=== PATIENT | male | born 1950 | race Caucasian/White ===

== ENCOUNTER 2025-01-13 09:23 | Day surgery (SDC) | payer MEDICARE ==
[2025-01-13] VITALS (16 sets, daily range): BP systolic 80–135; BP diastolic 50–116
[~2025-01-13] VITALS: Ht 170.2 cm; Wt 70.9 kg
[~2025-01-13 09:23] MED LIST: ALLERGY MEDICAT25 MG PO; ALLO100 PO; Aspirin EC81 MG PO; Cialis5 MG; Flomax0.4 MG PO; GLUCOSAMINE CH1 EAC1 PO; IBUP200 PO; ONE DAILY COMP1 EACH PO; SLEEP AID ULTRA25 MG PO; Simvastatin20 MG PO
--- NOTE | 2025-01-13 10:17 | NUR ---
Patient confirms NPO status and agrees with scheduled surgery. Patient States Post-Procedure ride home has been arranged. Patient states colon prep results clear.
--- NOTE | 2025-01-13 11:01 | NUR ---
01/13/25 1101 Janelle Murillo CONFIRMED AND REVIEWED H&P, MEDCICATIONS, ALLERGIES, MEDICAL HISTORY, RESPIRATORY HISTORY, VITAL SIGNS, 3-LEAD EKG, CONSENTS, AND PHYSICIAN ORDERS. PATIENT CONFIRMS NPO STATUS AND AGREES WITH SCHEDULED PROCEDURE. MONITOR INTACT WITH CONTINUOUS PULSE OXIMETRY, CAPNOGRAPHY, 3-LEAD EKG, INTERMITTENT BP. SUPPLEMENTAL O2 TO BE TITRATED THROUGHOUT PROCEDURE TO MAINTAIN O2 SATURATION ABOVE 90%. PATIENT DETERMINED TO BE ASA APPROPRIATE FOR PROPOFOL SEDATION PRIOR TO START OF PROCEDURE BY DR. READ.
--- NOTE | 2025-01-13 11:56 | NUR ---
01/13/25 1156 Bull Sotelo PATIENT STATES POST-PROCEDURE RIDE HOME HAS BEEN ARRANGED.DISCHARGE INSTRUCTIONS REVIEWED WITH PATIENT. PATIENT VERBALIZES UNDERSTANDING. COPY GIVEN TO PATIENT TO TAKE HOME.
== END 2025-01-13 22:53 | disposition home or self-care (01) ==
LOC: ORSCMMR 09:23 → ORD 10:45 → ORSCMMR 10:45
PROVIDERS: Surgery
PROC: 0DJD8ZZ Inspection of Lower Intestinal Tract, Via Natural or Artificial Opening Endoscopic (ICD-10-PCS; principal; 2025-01-13 10:45)
DX: Z12.11 Encounter for screening for malignant neoplasm of colon (principal); K57.30 Diverticulosis of large intestine without perforation or abscess without bleeding; Z86.0101 Personal history of adenomatous and serrated colon polyps; E78.5 Hyperlipidemia, unspecified; I73.00 Raynaud's syndrome without gangrene; Z79.82 Long term (current) use of aspirin; Z79.899 Other long term (current) drug therapy; Z87.891 Personal history of nicotine dependence
CPT/HCPCS: J2704; J7120